=== PATIENT | male | born 1960 | race Caucasian/White ===

== ENCOUNTER 2016-09-30 05:36 | Day surgery (SDC) | payer OTHER ==
[~2016-09-30] VITALS: Ht 175.3 cm; Wt 90.7 kg
[~2016-09-30 05:36] MED LIST: AMLODIPINE BESYL5 MG PO; AUGMENTIN875 MG PO; CIPRO500 MG PO; FLAGYL500 MG PO; LISINOPRIL40 MG PO; MOBIC15 MG PO; MOTRIN800 MG PO; NORVASC10 MG PO; PRAVASTATIN SOD20 MG PO; VITAMIN C1000 MG PO
[2016-09-30 06:10] LABS: HEMATOCRIT 44.5 % (38.0-50.0); MCV 89.2 FL (86-99)
[2016-09-30 06:47] VITALS: BP 116/84
[2016-09-30] MEDS ORDERED: NORCO 5/3251 TABLET PO (08:43)
[2016-09-30 09:24] VITALS: BP 141/85
[2016-09-30 09:44] VITALS: BP 140/86
== END 2016-09-30 09:55 | disposition home or self-care (01) ==
LOC: SDC 05:36
PROVIDERS: Anesthesiology
PROC: 06LY3CC Occlusion of Hemorrhoidal Plexus with Extraluminal Device, Percutaneous Approach (ICD-10-PCS; principal; 2016-09-30)
DX: K64.9 Unspecified hemorrhoids (principal); K60.2 Anal fissure, unspecified; I10 Essential (primary) hypertension
CPT/HCPCS: 85014; 85018; J3010; S0020